=== PATIENT | male | born 1990 | race African-American/Black ===

== ENCOUNTER 2017-06-17 18:04 | Emergency (ER) | payer SELFPAY ==
[~2017-06-17] VITALS: Ht 177.8 cm; Wt 80.0 kg
[2017-06-17 18:24] VITALS: BP 105/52; PULSE 70; RESP 17; TEMP 98.3; O2SAT 100
[2017-06-17] MEDS ORDERED: CEPH-460 PO (20:06)
[2017-06-17] MEDS ORDERED: BACT800T5 PO (20:06)
--- NOTE | 2017-06-17 20:10 | PD ---
HPI Chief Complaint: Skin Problem Time Seen by Provider: 20:00 Travel History International Travel<30 days: No Contact w/Intl Traveler<30days: No Traveled to known affect area: No History of Present Illness HPI 27-year-old black male presents emergency department with a abscess to his right lower back which he has had now for the past 5 days. Started off as a pimple which she had squeezed. He expressed a large amount of pus. Has now scabbed over. He is here for evaluation. He denies any fever chills. He states the pain actually is improving. Denies any history of MRSA in the past. PFSH Past Medical History Medical History: Denies Significant Hx Tetanus Vaccination: < 5 Years Past Surgical History Surgical History: No Previous Surgery Social History Alcohol Use: Yes Tobacco Use: Yes Substance Use: No Allergies-Medications (Allergen,Severity, Reaction): Coded Allergies: No Known Allergies (Unverified , 06/17/17) Reported Meds & Prescriptions Reported Meds & Active Scripts Active Keflex (Cephalexin) 500 Mg Capsule 500 Mg PO Q6H 7 Days Bactrim DS (Sulfamethoxazole-Trimethoprim) 800-160 Mg Tab 1 Tab PO BID Review of Systems Except as stated in HPI: all other systems reviewed are Neg Physical Exam Narrative GENERAL: This is a well-nourished, well-developed patient, in no apparent distress. SKIN: Patient has a 3 x 3 cm area of erythema and induration with a central abscess which has been expressed. I feel no fluctuance or pointing. Pain is mild. HEAD: Atraumatic. Normocephalic. EYES: PERRL, EOMI, no discharge or injection. No scleral icterus. EARS: Clear NOSE: Nasal turbinates appear normal. THROAT: Mucosa pink and moist. Airway patent. NECK: Trachea midline. supple, moves head freely. LUNGS: Clear to auscultation. CV: Regular in rhythm. ABDOMEN: Soft nontender. EXT: No clubbing cyanosis or edema. Data Data Last Documented VS Vital Signs Date Time Temp Pulse Resp B/P (MAP) Pulse Ox O2 Delivery O2 Flow Rate FiO2 06/17/17 18:24 98.3 70 17 105/52 (69) 100 Orders Orders Ed Discharge Order (06/17/17 20:06) MDM Medical Decision Making Medical Screen Exam Complete: Yes Emergency Medical Condition: Yes Medical Record Reviewed: Yes Differential Diagnosis MDM: High Differential diagnoses: Abscess, folliculitis, cellulitis, lymphangitis, abrasion, contact dermatitis Narrative Course This is an open draining abscess. I do not feel any fluctuance. Patient will be placed on Keflex and Bactrim DS. Diagnosis Primary Impression: Abscess right lower back Patient Instructions: General Instructions Additional Instructions: Rest. Elevation. keep clean and dry. Warm compresses. Daily wound care with soap, water and Neosporin. Three Advil every 6 hours. Keflex and Bactrim DS. Follow-up with a primary care doctor in one week. Return to the ER for any problems. Med/Other Pt SpecificInfo: Prescription(s) given Scripts Cephalexin (Keflex) 500 Mg Capsule 500 MG PO Q6H for Infection for 7 Days, #28 CAP 0 Refills Prov: Manav Larkin MD 06/17/17 Sulfamethoxazole-Trimethoprim (Bactrim DS) 800-160 Mg Tab 1 TAB PO BID for Infection, #20 TAB 0 Refills Prov: Manav Larkin MD 06/17/17 Disposition: 01 DISCHARGE HOME Condition: Stable Carlos Manuel De Dios Jun 17, 2017 20:10
== END 2017-06-17 20:26 | disposition home or self-care (01) ==
LOC: NEPD 18:04
DX: L02.212 Cutaneous abscess of back [any part, except buttock and flank] (principal); Z72.0 Tobacco use
CPT/HCPCS: 99283

== ENCOUNTER 2017-06-24 09:49 | Emergency (ER) | payer SELFPAY ==
[~2017-06-24] VITALS: Ht 177.8 cm; Wt 70.0 kg
[~2017-06-24 09:49] MED LIST: BACT800T5 PO; CEPH-460 PO
[2017-06-24 10:00] VITALS: BP 136/60; PULSE 85; RESP 16; TEMP 99.5; O2SAT 100
--- NOTE | 2017-06-24 11:48 | PD ---
HPI Chief Complaint: Skin Problem Time Seen by Provider: 11:29 Travel History International Travel<30 days: No Contact w/Intl Traveler<30days: No Traveled to known affect area: No History of Present Illness HPI 27-year-old male presents to the ED for evaluation of right lower back wound. Patient states that he was here about a week ago, was prescribed antibiotics. He states that he took all the antibiotics as prescribed and symptoms have resolved. However he was concerned that the wound is not healed. He denies fever, chills, nausea, vomiting, tenderness, redness, drainage from the wound. He's been keeping the wound clean, dry and covered. History Social History Alcohol Use: Yes Tobacco Use: Yes Allergies-Medications (Allergen,Severity, Reaction): Coded Allergies: No Known Allergies (Unverified , 06/17/17) Reported Meds & Prescriptions Reported Meds & Active Scripts Active Keflex (Cephalexin) 500 Mg Capsule 500 Mg PO Q6H 7 Days Bactrim DS (Sulfamethoxazole-Trimethoprim) 800-160 Mg Tab 1 Tab PO BID Review of Systems Except as stated in HPI: all other systems reviewed are Neg Physical Exam Narrative GENERAL: Well-nourished, well-developed -[place] male in no acute distress.. SKIN: Focused skin assessment warm/dry. There is a 1 cm coin-shaped lesion on the right lower back with localized induration and well granulated pink tissue. No signs of infection. HEAD: Normocephalic. EYES: No scleral icterus. No injection or drainage. NECK: Supple, trachea midline. No JVD or lymphadenopathy. CARDIOVASCULAR: Regular rate and rhythm without murmurs, gallops, or rubs. RESPIRATORY: Breath sounds equal bilaterally. No accessory muscle use. GASTROINTESTINAL: Abdomen soft, non-tender, nondistended. MUSCULOSKELETAL: No cyanosis, or edema. BACK: Nontender without obvious deformity. No CVA tenderness. Data Data Last Documented VS Vital Signs Date Time Temp Pulse Resp B/P (MAP) Pulse Ox O2 Delivery O2 Flow Rate FiO2 06/24/17 10:00 99.5 85 16 136/60 (85) 100 MDM Medical Screen Exam Complete: Yes Emergency Medical Condition: No Narrative Course 27-year-old male presents to the ED for evaluation of wound on his back. Patient was seen roughly 1 week ago, prescribed antibiotics. He endorses compliance with the antibiotics but states that the wound has not closed. He denies fever, chills, nausea, vomiting. He states the wound is not painful. He does not have any discharge from the wound. Vitals reviewed. On exam there is a 1 cm coin-shaped wound on the back with surrounding induration and well granulated tissue. Patient instructed continue with wound care, monitor for signs of infection. No emergency medical condition exists at this time. A medical screening exam was performed: At the time of evaluation the presenting medical condition was determined not to be of an emergent nature. The patient was given the option of receiving additional care, but declined. Patient was given options for additional community resources from which to obtain care. The Patient Has Been advised to seek medical attention for their presenting complaint. The patient has been advised to return to the ER at any time if an emergent condition develops. Primary Impression: Encounter for medical screening examination Condition: Maura Rosenthal Jun 24, 2017 11:48
== END 2017-06-24 12:01 | disposition left against medical advice (07) ==
LOC: NEPK 09:49
DX: S31.000D Unspecified open wound of lower back and pelvis without penetration into retroperitoneum, subsequent encounter (principal); X58.XXXD Exposure to other specified factors, subsequent encounter; Z72.0 Tobacco use
CPT/HCPCS: 99281